=== PATIENT | female | born 1995 | race Caucasian/White ===

== ENCOUNTER 2024-07-30 14:13 | Outpatient (CLI) | payer BC, SELFPAY ==
--- NOTE | ~2024-07-30 | US_ITS ---
EXAMINATION: US OB <= 14 weeks fetus DATE: 07/30/2024 14:29 INDICATION: with inconclusive viability. TECHNIQUE: Real-time transabdominal pelvic ultrasound was performed. COMPARISON: None. FINDINGS: The uterus measures 12.1 x 7.6 x 6.2 cm. There is an intrauterine gestational sac. A yolk sac is iden tified. The crown rump length measures 2.4 cm, which correlates with an estimated gestational age of 9 weeks and 0 day(s) (+/-) 0 week(s) and 6 day(s). heart motion is identified measuring 174 beats per minute (bpm) by M-mode Doppler. There is a small subchronic hematoma. The ovaries are n ot visualized. There is no free fluid in the pelvis. IMPRESSION: 1. Single living intrauterine gestation with estimated date of delivery of 03/04/2025. 2. Small subchorionic hematoma. Reviewed, dictated and finalized at location A. IMPRESSION: 1. Single living intrauterine gestation with estimated date of delivery of 03/04. 2. Small subchorionic hematoma.
== END 2024-07-30 14:14 | disposition home or self-care (01) ==
LOC: GOSHIMG 14:14
PROVIDERS: PCP Family Medicine Adolescent Medicine; Visit Provider Nurse Practitioner Family
DX: O36.80X0 Pregnancy with inconclusive fetal viability, not applicable or unspecified (principal); Z3A.00 Weeks of gestation of pregnancy not specified
CPT/HCPCS: 76801

== ENCOUNTER 2024-08-29 11:52 | Outpatient (CLI) | payer BC, SELFPAY ==
[2024-08-29 12:34] LABS: Basophils Percent Auto 0.3 % (0.2-1.2); Eosinophils Absolute Auto 0.1 K/mm3 (0-0.3); Eosinophils Percent Auto 0.7 % (0-4.4); Hematocrit 40.5 % (37.0-47.0); Hemoglobin 13.9 g/dL (12.0-15.0); Immature Granulocyte Absolute 0.03 K/mm3 (0.00-0.031); Immature Granulocyte Percent A 0.4 % (0-0.5); Lymphocytes Absolute Auto 1.77 K/mm3 (0.9-3.2); Mean Corpuscular HGB Conc 34.3 g/dl (32-36); Mean Corpuscular Hemoglobin 30.2 pg (26-34); Mean Platelet Volume 9.7 fl (7.4-10.4); Monocytes Absolute Auto 0.6 K/mm3 (0.1-0.6); Neutrophils Absolute Auto 4.9 K/mm3 (1.3-6.7); Neutrophils Percent Auto 66.6 % (45.5-73.1); Platelet Count Result 213 k/mm3 (150-375); Red Cell Distribution Width 12.1 % (11.5-14.5); White Blood Count 7.4 K/mm3 (4.5-10.0)
[2024-08-29 12:42] LABS: Hemoglobin A1C 5.1 % (<5.7)
[2024-08-29 13:04] LABS: Add Urine Microscopic? YES; Appearance Urine Cloudy (Clear); Bacteria Urine 4+ /hpf; Bilirubin Urine Negative (Negative); Blood Urine Negative (Negative); Color Urine Yellow (Yellow); Glucose Urine UA 1+ mg/dL (Negative); Ketones Urine Negative (Negative); Leukocyte Esterase Ur 3+ LEU/UL (Negative); Need Manual Microscopic Reviewed; Nitrate Urine Negative (Negative); Non Pathogenic Casts 0-2; Protein Urine Negative (Negative); RBC Urine 0-2 /hpf (0-2); Specific Grav Ur 1.025 (1.001-1.035); Squamous Epithelial Cell Urine Moderate /hpf (Few); Urobilinogen Urine 0.2 mg/dL (<2.0); WBC Urine 51-100 /hpf (0-3)
[2024-08-29 13:16] LABS: Thyroid Stimulating Hormone 0.183 uIU/mL (0.465-4.680)
[2024-08-29 13:26] LABS: HIV 1/2 Ab P24 Ag Result Negative (Negative)
[2024-08-29 13:36] LABS: Vitamin D 25 Hydroxy 37.3 ng/mL
[2024-08-29 13:53] LABS: Hepatitis B Surface Antigen Negative (Negative)
[2024-08-29 14:07] LABS: Hepatitis C Virus Antibody Negative (Negative)
[2024-08-30 11:29] LABS: Rapid Plasma Reagin Non-Reactive (NonReactive)
[2024-08-31 06:58] LABS: Hematocrit 43.2 % (35.0-45.0); Hemoglobin 13.7 g/dL (11.7-15.5); MCH 28.8 pg (27.0-33.0); MCV 90.9 fL (80.0-100.0); RDW 12.3 % (11.0-15.0); Red Blood Cell Count 4.75 Million/uL (3.80-5.10)
[2024-09-01 14:44] LABS: Varicella IgG Antibody <1.00 S/CO
== END 2024-08-29 11:53 | disposition home or self-care (01) ==
LOC: ANHLAB 11:55
PROVIDERS: PCP Family Medicine Adolescent Medicine; Visit Provider Obstetrics & Gynecology
DX: Z34.91 Encounter for supervision of normal pregnancy, unspecified, first trimester (principal); Z3A.00 Weeks of gestation of pregnancy not specified
CPT/HCPCS: 36415; 81001; 82306; 83021; 83036; 84443; 85025; 86592; 86703; 86762; 86787; 86803; 86850; 86900; 86901; 87086; 87340; G0432

== ENCOUNTER 2024-09-08 10:34 | Outpatient (CLI) | payer BC, SELFPAY ==
[2024-09-08 11:49] LABS: Free T4 Free Thyroxine 1.04 ng/mL (0.78-2.19)
== END 2024-09-08 10:35 | disposition home or self-care (01) ==
LOC: ANHLAB 10:35
PROVIDERS: PCP Family Medicine Adolescent Medicine; Visit Provider Obstetrics & Gynecology
DX: R79.89 Other specified abnormal findings of blood chemistry (principal)
CPT/HCPCS: 36415; 84439

== ENCOUNTER 2024-11-17 09:07 | Outpatient (CLI) | payer BC, SELFPAY ==
[2024-11-17 10:28] LABS: Basophils Percent Auto 0.3 % (0.2-1.2); Eosinophils Absolute Auto 0.1 K/mm3 (0-0.3); Eosinophils Percent Auto 0.8 % (0-4.4); Hematocrit 40.2 % (37.0-47.0); Hemoglobin 13.2 g/dL (12.0-15.0); Immature Granulocyte Absolute 0.07 K/mm3 (0.00-0.031); Immature Granulocyte Percent A 0.7 % (0-0.5); Lymphocytes Absolute Auto 1.64 K/mm3 (0.9-3.2); Lymphocytes Percent Auto 16.3 % (18.3-44.2); Mean Corpuscular HGB Conc 32.8 g/dl (32-36); Mean Corpuscular Hemoglobin 29.9 pg (26-34); Mean Platelet Volume 10.3 fl (7.4-10.4); Monocytes Absolute Auto 0.8 K/mm3 (0.1-0.6); Monocytes Percent Auto 7.5 % (2.6-8.5); Neutrophils Absolute Auto 7.5 K/mm3 (1.3-6.7); Neutrophils Percent Auto 74.4 % (45.5-73.1); Platelet Count Result 219 k/mm3 (150-375); Red Blood Count 4.42 M/mm3 (4.2-5.4); Red Cell Distribution Width 13.2 % (11.5-14.5)
[2024-11-17 10:44] LABS: Glucose 1 Hour PP 50gm Dose 81 mg/dL
--- OUTSIDE RECORDS SUMMARY | 2024-11-20 12:12 | XMS_ITS | Clinical Summary ---
Author Organization [facility] Address [address] [place] [address] Phone Care Team Providers Care Health Spa Manager Name Role Phone Unavailable Primary Care Provider Unavailabl e Encounters Date Type Department Care Team Description 11/19/2024 External Device Data STL ABSTRACTION Provider, Abstract 10/28/2024 External Device Data STL ABSTRACTION Provider, Abstract 10/23/2024 7:30 AM JACKSCREW WORKER - 10/23/2024 11:59 PM JACKSCREW WORKER Hospital Encounter [facility] [address] [place] [address] Serge Bobo MD Discharge Disposition: Home or Self Care from Last 3 Months Social History Tobacco Use Types Packs/Day Years Used Date Smoking Tobacco: Never Assessed Comments Unknown Sex and Gender Information Value Date Recorded Sex Assigned at Female 10/28/2024 8:55 PM JACKSCREW WORKER Legal Sex Female 12:21 PM JACKSCREW WORKER Gender Identity Female 10/28/2024 8:55 PM JACKSCREW WORKER Sexual Orientation Not on file Plan of Treatment Upcoming Encounters Date Type Department Care Team (Late st Contact Info) Description 12/16/2024 7:15 AM JACKSCREW WORKER Appointment [facility] [address] [place] [address] Melanie Sykes MD [address] [facility] [address] [place] [address] Health Maintenance Due Date Last Done Comments DTAP/TDAP/TD VACCINES (1 - Tdap) 2014 HEPATITIS B VACCINES (1 of 3 - 19+ 3-dose series) 2014 CERVICAL CANCER SCREENING 2016 INFLUENZA VACCINE (#1) 2024 HPV VACCINES Aged Out No longer eligi nadya based on patient's age to complete this topic Procedures Procedure Name Priority Date/Time Associated Diagnosis Comments US OB 14+ WKS SINGLE GEST Routine 10/23/2024 8:41 AM JACKSCREW WORKER Encounter for screening for malformation from Last 3 Months Results * US OB 14+ WKS SINGLE GEST (10/23/2024 8:41 AM JACKSCREW WORKER) Anatomical Region Laterality Modality Pelvis Ultrasound 10/23/2024 7:54 AM JACKSCREW WORKER Narrative 10/23/2024 8:48 AM JACKSCREW WORKER STL BASIC ----- Pat. Name: ОЛЕГ MCMAHAN Study Date: 10/23/2024 7:54am Pat. NO: [id number] Referring ??MD: SERGE BOBO MD Site: [facility] Supervisor: Marina Loaiza RDMS : 1995 Age: 29 ----- INDICATION ----- Anatomy Survey CODING ----- Diagnoses ? Z3A.21: Weeks of gestation ?Z36.3: Encounter for screening for malformations Procedures ?64143: Ultrasound, uterus, real time with image documentation, and maternal evaluation, ?after first trimester (> or = 14 weeks 0 days), transabdominal approach; single or first gestation HISTORY ----- OB History ? 1. Para 0 MATERNAL ASSESSMENT ----- Physical Exam ? Weight 82 kg. BMI 28.19 kg/m?? METHOD ----- Transabdominal ultrasound examination ----- Barker . Number of fetuses: 1 DATING ----- Cycle: regular cycle Method of dating: based on stated RICK GA by prior assessment 21 w + 1 d RICK by prior assessment: 03/04/2025 Ultrasound examination on: 10/23/2024 GA by U/S based upon: AC, BPD, EFW, Femur, HC GA by U/S 20 w + 6 d RICK by U/S: 03/06/2025 Assigned: based on stated RICK, selected on 10/23/2024 Assigned GA 21 w + 1 d Assigned RICK: 03/04/2025 BIOMETRY ----- BPD ?49.4 ? mm ? 21w 0d ? 41% ?Hadlock OFD ?64.1 ? mm ? 21w 5d ? 72% ?Stefan ? 181.5 ?mm ? 20w 4d ? 17% ?Hadlock Cerebellum tr ?21.1 ? mm ? 20w 5d ? 32% ?Villa Nuchal fold ?3.6 ?mm AC ? 164.6 ?mm ? 21w 4d ? 55% ?Hadlock Femur ?32.4 ? mm ? 20w 1d ? 12% ?Hadlock Humerus ?30.6 ? mm ? 20w 1d ? 13% ?Stefan HC / AC ?1.10 ?15% ? Nicolaides Weight Calculation: EFW ?381 ? g ?20w 5d ?30% ?Hadlock EFW (lb,oz) ?0 lb 13 ? oz EFW by ?Hadlock ([id number]) Head / Face / Neck Biometry: Aircraft Magneto Mechanic ? 6.5 ?mm CM ? 3.1 ?mm ? 2% ?Nicolaides Outer IOD ? 31.1 ? mm ? 20w 0d ?9% ? Stefan Extremities / Bony Struc Biometry: FL / BPD ?0.66 FL / HC ? 0.18 FL / AC ? 0.20 GENERAL EVALUATION ----- Cardiac activity present. FHR 145 bpm. movements: visualized. Presentation: breech Placenta: Placental site: anterior Umbilical cord: Cord vessels: 2 vessel cord. Insertion site: placental insertion: normal Amniotic fluid: Amount of AF: normal amount. MVP 3.9 cm ANATOMY ----- The following structures appear normal: Head / Neck ? Cranium. Lateral ventricles. Choroid plexus. Midline falx. Cavum septi pellucidi. Cerebellum. Cisterna ?magna. ?Nuchal fold. Face ?Lips. Profile. Nose. Palate. Orbits. Heart / Thorax ?4-chamber view. RVOT view. LVOT view. 3-vessel view. 6-liplil-fqrctzf view. Situs. Aortic arch view. ?Ductal arch view. Superior vena cava. Inferior vena cava. High short axis view. Cardiac rhythm. ?Diaphragm. Abdomen ? Abdominal wall. Stomach. Kidneys. Bladder. Spine ? Cervical spine. Thoracic spine. Lumbar spine. Sacral spine. Extremities / ? Arms. Right hand. Left hand. Legs. Right foot. Left foot. Skeleton MATERNAL STRUCTURES ----- Cervix ?Visualized ?Approach - Transabdominal: Cervical length 45.1 mm Right Ovary ? Not visualized Left Ovary ?Not visualized GROWTH OVERVIEW ----- Exam date ? GA ?BPD (mm) ? HC (mm) ?AC (mm) ? FL (mm) ?HL (mm) ?EFW (g) 10/23/2024 ?21w 1d ?49.4 ?41% ?181.5 ? 17% ?164.6 ?55% ?32.4 ?12% ?30.6 ?13% ?381 ? 30% COMMENT ----- Patient's name and date of were confirmed by the diaper machine tender prior to the exam IMPRESSION ----- Barker @ 21w 1d referred for anatomical survey. - The biometry is consistent with dates. - Amniotic fluid indices are within normal limits. - The placenta is anterior with a central cord insertion and with no evidence of previa or low-lying placenta. A 2 vessel cord is noted today. - Visualized anatomy is unremarkable and no abnormality is suspected at this time. Single umbilical artery (SUA) umbilical cord is isolated in 85 % of pregnancies. If a concomitant anomaly is present it can be associated with aneuploidy. Common anomalies associated with SUA include and cardiac defects, sirenomelia, and TRAP sequence. It is most commonly an incidental finding on routine views of the umbilical cord. It occurs in 1% of births. Isolated SUA has an increased risk of FGR, but no increased mortality risk. Due to the association with FGR, serial growth ultrasounds are recommended. A followup ultrasound is recommended at 28 to follow growth due to the 2 vessel cord. Thank you for allowing us to participate in the care of your patient. Procedure Note Melanie Sykes MD - 10/23/2024 STL BASIC ----- Pat. Name:Phil MCMAHAN Date:10/23/2024 7:54am Pat. NO: [id number] MD:SERGE BOBO [facility] Loaiza RDMS :1995Age:29 ----- INDICATION ----- Anatomy Survey CODING ----- Diagnoses Z3A.21: Weeks of gestation Z36.3: Encounter for screening formalformations Procedures [id number]: Ultrasound, uterus, real time withimage documentation, and maternal evaluation, after first trimester (> or = 14 weeks 0 days),transabdominal approach; single or first gestation HISTORY ----- OB History 1. Para 0 MATERNAL ASSESSMENT ----- Physical Exam Weight 82 kg. BMI 28.19 kg/m?? METHOD ----- Transabdominal ultrasound examination ----- Barker . Number of fetuses: 1 DATING ----- Cycle:regular cycle Method of dating:based on stated RICK GA by prior [id number] w + 1 d RICK by prior assessment:03/04/2025 Ultrasound examination on:10/23/2024 GA by U/S based upon:AC, BPD, EFW, Femur, HC GA by U/S20 w + 6 d RICK by U/S:03/06/2025 Assigned:based on stated RICK, selected on 10/23/2024 Assigned GA21 w + 1 d Assigned RICK:03/04/2025 BIOMETRY ----- BPD 49.4 mm 21w 0d41% Hadlock OFD 64.1 mm 21w 5d72% Stefan HC 181.5 mm 20w 4d17% Hadlock Cerebellum tr 21.1 mm 20w 5d32% Villa Nuchal fold 3.6 mm AC 164.6 mm 21w 4d55% Hadlock Femur 32.4 mm 20w 1d12% Hadlock Humerus 30.6 mm 20w 1d13% Stefan HC / AC 1.10 15%Nicolaides Weight Calculation: EFW 381 g 20w 5d 30%Hadlock EFW (lb,oz) 0 lb 13 oz EFW by Hadlock ([id number]) Head / Face / Neck Biometry: Aircraft Magneto Mechanic 6.5 mm CM 3.1 mm 2%Nicolaides Outer IOD 31.1 mm 20w 0d 9%Stefan Extremities / Bony Struc Biometry: FL / BPD 0.66 FL / HC 0.18 FL / AC 0.20 GENERAL EVALUATION ----- Cardiac activity present. FHR 145 bpm. movements: visualized.Presentation: breech Placenta: Placental site: anterior Umbilical cord: Cord vessels: 2 vessel cord. Insertion site: placentalinsertion: normal Amniotic fluid: Amount of AF: normal amount. MVP 3.9 cm ANATOMY ----- The following structures appear normal: Head / Neck Cranium. Lateral ventricles. Choroid plexus.Midline falx. Cavum septi pellucidi. Cerebellum. Cisterna magna. Nuchal fold. Face Lips. Profile. Nose. Palate. Orbits. Heart / Thorax 4-chamber view. RVOT view. LVOT view. 3-vesselview. 5-bwemxl-npvlfwp view. Situs. Aortic arch view. Ductal arch view. Superior vena cava. Inferiorvena cava. High short axis view. Cardiac rhythm. Diaphragm. Abdomen Abdominal wall. Stomach. Kidneys. Bladder. Spine Cervical spine. Thoracic spine. Lumbar spine.Sacral spine. Extremities / Arms. Right hand. Left hand. Legs. Right foot.Left foot. Skeleton MATERNAL STRUCTURES ----- Cervix Visualized Approach - Transabdominal: Cervical length 45.1mm Right Ovary Not visualized Left Ovary Not visualized GROWTH OVERVIEW ----- Exam date GA BPD (mm) HC (mm) AC (mm) FL(mm) HL (mm) EFW (g) 10/23/2024 21w 1d 49.4 41% 181.5 17% 164.6 55%32.4 12% 30.6 13% 381 30% COMMENT ----- Patient's name and date of were confirmed by the diaper machine tender priorto the exam IMPRESSION ----- Barker @ 21w 1d referred for anatomical survey. - The biometry is consistent with dates. - Amniotic fluid indices are within normal limits. - The placenta is anterior with a central cord insertion and with noevidence of previa or low-lying placenta. A 2 vessel cord is noted today. - Visualized anatomy is unremarkable and no abnormality is suspectedat this time. Single umbilical artery (SUA) umbilical cord is isolated in 85 % ofpregnancies. If a concomitant anomaly is present it can be associated with aneuploidy. Common anomalies associated with SUA includeGU and cardiac defects, sirenomelia, and TRAP sequence. It is most commonly an incidental finding on routine views of theumbilical cord. It occurs in 1% of births. Isolated SUA has an increased risk of FGR, but no increased mortality risk. Due to theassociation with FGR, serial growth ultrasounds are recommended. A followup ultrasound is recommended at 28 to follow growth due tothe 2 vessel cord. Thank you for allowing us to participate in the care of your patient. us Serge Bobo MD ORDERABLES Final Result from Last 3 Months Insurance [facility]
== END 2024-11-17 09:08 | disposition home or self-care (01) ==
LOC: ANHLAB 09:09
PROVIDERS: PCP Family Medicine Adolescent Medicine; Visit Provider Nurse Practitioner Obstetrics & Gynecology
DX: Z34.00 Encounter for supervision of normal first pregnancy, unspecified trimester (principal); Z3A.00 Weeks of gestation of pregnancy not specified
CPT/HCPCS: 36415; 82947; 85025

== ENCOUNTER 2024-12-15 08:36 | Outpatient (RCR) | payer BC, SELFPAY ==
[2024-12-15] MEDS: RHO(D) IMMUNE GLOBULIN 300 MCG/2 ML SYRINGE IM (15:33)
== END 2025-03-15 23:59 | disposition home or self-care (01) ==
LOC: ANHLAB 08:36
PROVIDERS: PCP Family Medicine Adolescent Medicine; Visit Provider Obstetrics & Gynecology
DX: Z29.13 Encounter for prophylactic Rho(D) immune globulin (principal); O36.0190 Maternal care for anti-D [Rh] antibodies, unspecified trimester, not applicable or unspecified; Z3A.00 Weeks of gestation of pregnancy not specified
CPT/HCPCS: 36415; 85461; 86850; 86900; 86901; 90384; 96372; J2790

== ENCOUNTER 2025-01-09 16:22 | Outpatient (CLI) | payer BC, SELFPAY ==
--- OUTSIDE RECORDS SUMMARY | 2025-01-09 16:25 | XMS_ITS | Clinical Summary ---
Author Organization [facility] Address [address] [place] [address] Phone Care Team Providers Care Director Packaging Name Role Phone Unavailable Primary Care Provider Unavailabl e Encounters Date Type Department Care Team Description 01/03/2025 External Device Data STL ABSTRACTION Provider, Abstract 01/02/2025 External Device Data STL ABSTRACTION Provider, Abstract 12/31/2024 External Device Data STL ABSTRACTION Provider, Abstract 12/25/2024 7:07 AM WASH DRILLER - 12/25/2024 11:59 PM WASH DRILLER Hospital Encounter [facility] [address] [place] [phone] Fiona Martinez MD Discharge Disposition: Home or Self Care 12/16/2024 7:15 AM WASH DRILLER - 12/16/2024 11:59 PM WASH DRILLER Hospital Encounter [facility] [address] [place] [phone] Melanie Sykes MD Discharge Disposition: Home or Self Care 12/16/2024 External Device Data STL ABSTRACTION Provider, Abstract 11/25/2024 External Device Data STL ABSTRACTION Provider, Abstract 11/19/2024 External Device Data STL ABSTRACTION Provider, Abstract 11/19/2024 External Device Data STL ABSTRACTION Provider, Abstract 10/28/2024 External Device Data STL ABSTRACTION Provider, Abstract 10/23/2024 7:30 AM WASH DRILLER - 10/23/2024 11:59 PM WASH DRILLER Hospital Encounter [facility] [address] [place] [phone] Serge Bobo MD Discharge Disposition: Home or Self Care from Last 3 Months Social History Tobacco Use Types Packs/Day Years Used Date Smoking Tobacco: Never Assessed Comments Unknown Sex and Gender Information Value Date Recorded Sex Assigned at Female 10/28/2024 8:55 PM WASH DRILLER Legal Sex Female 12:21 PM WASH DRILLER Gender Identity Female 10/28/2024 8:55 PM WASH DRILLER Sexual Orientation Not on file Plan of Treatment Upcoming Encounters Date Type Department Care Team (Late st Contact Info) Description 01/15/2025 9:30 AM CDT Appointment [facility] [address] [place] [address] Melanie Sykes MD [address] [facility] [address] [place] [phone] Health Maintenance Due Date Last Done Comments DTAP/TDAP/TD VACCINES (1 - Tdap) 2014 HEPATITIS B VACCINES (1 of 3 - 19+ 3-dose series) 2014 CERVICAL CANCER SCREENING 2016 INFLUENZA VACCINE (#1) 2024 HPV VACCINES Aged Out No longer eligi ble based on patient's age to complete this topic Procedures Procedure Name Priority Date/Time Associated Diagnosis Comments US OB FOLLOW UP PER FETUS Routine 12/25/2024 7:44 AM WASH DRILLER arrhythmia affecting , antepartum US OB FOLLOW UP PER FETUS Routine 12/16/2024 7:43 AM WASH DRILLER Single umbilical artery US OB 14+ WKS SINGLE GEST Routine 10/23/2024 8:41 AM WASH DRILLER Encounter for screening for malformation from Last 3 Months Results * US OB FOLLOW UP PER FETUS (12/25/2024 7:44 AM WASH DRILLER) Only the most recent of2 resultswithin the time period is included. Anatomical Region Laterality Modality Pelvis Ultrasound 12/25/2024 7:08 AM WASH DRILLER Narrative 12/25/2024 7:49 AM WASH DRILLER STL FOLLOW UP ----- Pat. Name: ОЛЕГ MCMAHAN Study Date: 12/25/2024 7:08am Pat. 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 Para 0 METHOD ----- Transabdominal ultrasound examination ----- Barker . Number of fetuses: 1 DATING ----- Cycle: regular cycle GA by prior assessment 30 w + 1 d RICK by prior assessment: 03/04/2025 Method of dating: Restore dating from previous exam Assigned: based on stated RICK, selected on 10/23/2024 Assigned GA 30 w + 1 d Assigned RICK: 03/04/2025 GENERAL EVALUATION ----- Cardiac activity present. FHR 131 bpm. movements: present. Presentation: cephalic Placenta: Placental site: anterior Umbilical cord: Cord vessels: 2 vessel cord. Insertion site: placental insertion: normal Amniotic fluid: Amount of AF: normal amount. MVP 3.6 cm. FLAVIA 11.7 cm. Q1 2.6 cm, Q2 3.6 cm, Q3 3.2 cm, Q4 2.2 cm ANATOMY ----- The following structures appear normal: Head / Neck Cranium. Heart / Thorax 4-chamber view. RVOT view. LVOT view. Abdomen Stomach. Bladder. GROWTH OVERVIEW ----- Exam date GA BPD (mm) HC (mm) AC (mm) FL (mm) HL (mm) EFW (g) 10/23/2024 21w 1d 49.4 41% 181.5 17% 164.6 55% 32.4 12% 30.6 13% 381 30% 12/16/2024 28w 6d 75.8 84% 274.2 50% 258.6 77% 52.7 15% 1,387 57% COMMENT ----- Patient's name and date of were verified by the blending coordinator prior to the exam IMPRESSION ----- 1. Single living fetus with gestational age of 30w 1d , based on the reported clinical dates. 2. Target, limited anatomic survey is notable for normal sinus rhythm. 3. The amniotic fluid is normal for gestational age. Recommendations: - OK to resume routine surveillance. - Discontinue weekly exams. Thank you for allowing us to participate in the care of this patient. Procedure Note Korin Saavedra MD - 12/25/2024 STL FOLLOW UP ----- Pat. Name:Phil MCMAHAN Date:12/25/2024 7:08am Pat. 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 Para 0 METHOD ----- Transabdominal ultrasound examination ----- Barker . Number of fetuses: 1 DATING ----- Cycle:regular cycle GA by prior [id number] w + 1 d RICK by prior assessment:03/04/2025 Method of dating:Restore dating from previous exam Assigned:based on stated RICK, selected on 10/23/2024 Assigned GA30 w + 1 d Assigned RICK:03/04/2025 GENERAL EVALUATION ----- Cardiac activity present. FHR 131 bpm. movements: present.Presentation: cephalic Placenta: Placental site: anterior Umbilical cord: Cord vessels: 2 vessel cord. Insertion site: placentalinsertion: normal Amniotic fluid: Amount of AF: normal amount. MVP 3.6 cm. FLAVIA 11.7 cm. Q12.6 cm, Q2 3.6 cm, Q3 3.2 cm, Q4 2.2 cm ANATOMY ----- The following structures appear normal: Head / Neck Cranium. Heart / Thorax 4-chamber view. RVOT view. LVOT view. Abdomen Stomach. Bladder. GROWTH OVERVIEW ----- Exam date GA BPD (mm) HC (mm) AC (mm) FL(mm) HL (mm) EFW (g) 10/23/2024 21w 1d 49.4 41% 181.5 17% 164.6 55%32.4 12% 30.6 13% 381 30% 12/16/2024 28w 6d 75.8 84% 274.2 50% 258.6 77%52.7 15% 1,387 57% COMMENT ----- Patient's name and date of were verified by the blending coordinator prior tothe exam IMPRESSION ----- 1. Single living fetus with gestational age of 30w 1d , based on thereported clinical dates. 2. Target, limited anatomic survey is notable for normal sinusrhythm. 3. The amniotic fluid is normal for gestational age. Recommendations: - OK to resume routine surveillance. - Discontinue weekly exams. Thank you for allowing us to participate in the care of this patient. us Fiona Martinez MD US ORDERABLES Final Result * US OB 14+ WKS SINGLE GEST (10/23/2024 8:41 AM WASH DRILLER) Anatomical Region Laterality Modality Pelvis Ultrasound 10/23/2024 7:54 AM WASH DRILLER Narrative 10/23/2024 8:48 AM WASH DRILLER STL BASIC ----- Pat. Name: ОЛЕГ MCMAHAN Study Date: 10/23/2024 7:54am Pat. NO: [id number] Referring MD: SERGE BOBO MD Site: [place] [employer] Specialist: Marina Loaiza RDMS : 1995 Age: 29 ----- INDICATION ----- Anatomy Survey CODING ----- Diagnoses Z3A.21: Weeks of gestation Z36.3: Encounter for screening for malformations Procedures [id number]: Ultrasound, uterus, real time with image documentation, and maternal evaluation, after first trimester (> or = 14 weeks 0 days), transabdominal approach; single or first gestation HISTORY ----- OB History 1. Para 0 MATERNAL ASSESSMENT ----- Physical Exam Weight 82 kg. BMI 28.19 kg/m METHOD ----- Transabdominal ultrasound examination ----- Barker [...] d Assigned RICK: 03/04/2025 BIOMETRY ----- BPD 49.4 mm 21w 0d 41% Hadlock OFD 64.1 mm 21w 5d 72% Stefan HC 181.5 mm 20w 4d 17% Hadlock Cerebellum tr 21.1 mm 20w 5d 32% Villa Nuchal fold 3.6 mm AC 164.6 mm 21w 4d 55% Hadlock Femur 32.4 mm 20w 1d 12% Hadlock Humerus 30.6 mm 20w 1d 13% Stefan HC / AC 1.10 15% Nicolaides Weight Calculation: EFW 381 g 20w 5d 30% Hadlock EFW (lb,oz) 0 lb 13 oz EFW by Hadlock ([id number]) Head / Face / Neck Biometry: Dialysis Tech 6.5 mm CM 3.1 mm 2% Nicolaides Outer IOD 31.1 mm 20w 0d 9% Stefan Extremities / Bony Struc Biometry: FL [...] Head / Neck Cranium. Lateral ventricles. Choroid plexus. Midline falx. Cavum septi pellucidi. Cerebellum. Cisterna magna. Nuchal fold. Face Lips. Profile. Nose. Palate. Orbits. Heart / Thorax 4-chamber view. RVOT view. LVOT view. 3-vessel view. 3-wsfknu-twlcuhm view. Situs. Aortic arch view. Ductal arch view. Superior vena cava. Inferior vena cava. High short axis view. Cardiac rhythm. Diaphragm. Abdomen Abdominal wall. Stomach. Kidneys. Bladder. Spine Cervical spine. Thoracic spine. Lumbar spine. Sacral spine. Extremities / Arms. Right hand. Left hand. Legs. Right foot. Left foot. Skeleton MATERNAL STRUCTURES ----- Cervix Visualized Approach - Transabdominal: Cervical length 45.1 mm Right Ovary Not visualized Left Ovary Not visualized GROWTH OVERVIEW ----- Exam date GA BPD (mm) HC (mm) AC (mm) FL (mm) HL (mm) EFW (g) 10/23/2024 21w 1d 49.4 41% 181.5 17% 164.6 55% 32.4 12% 30.6 13% 381 30% COMMENT ----- Patient's name and date of were confirmed by the blending coordinator prior to the exam IMPRESSION ----- Barker [...] Pat. Name:Phil MCMAHAN Date:10/23/2024 7:54am Pat. NO: [id number] MD:SERGE BOBO [facility]Marina Loaiza RDMS :1995Age:29 ----- INDICATION ----- Anatomy Survey CODING ----- Diagnoses Z3A.21: Weeks of gestation Z36.3: Encounter for screening formalformations Procedures 51537: Ultrasound, uterus, real time withimage documentation, and maternal evaluation, after first trimester (> or = 14 weeks 0 days),transabdominal approach; single or first gestation HISTORY ----- OB History 1. Para 0 MATERNAL ASSESSMENT ----- Physical Exam Weight 82 kg. BMI 28.19 kg/m METHOD ----- Transabdominal ultrasound examination ----- Barker . Number of fetuses: 1 DATING ----- Cycle:regular cycle Method of dating:based on stated RICK GA by prior [id number] w + 1 d RICK by prior [...] 0 lb 13 oz EFW by Hadlock ([id number]) Head / Face / Neck Biometry: Dialysis Tech 6.5 mm CM 3.1 mm 2%Nicolaides Outer [...] 4-chamber view. RVOT view. LVOT view. 3-vesselview. 8-xtenhj-pogqqxa view. Situs. Aortic arch view. Ductal arch [...] and date of were confirmed by the blending coordinator priorto the exam IMPRESSION ----- Barker @ [...] Final Result from Last 3 Months [facility]
[2025-01-09 16:50] LABS: Hematocrit 37.1 % (37.0-47.0); Hemoglobin 12.2 g/dL (12.0-15.0); Mean Corpuscular HGB Conc 32.9 g/dl (32-36); Mean Corpuscular Hemoglobin 29.6 pg (26-34); Mean Platelet Volume 10.5 fl (7.4-10.4); Platelet Count Result 195 k/mm3 (150-375); Red Blood Count 4.12 M/mm3 (4.2-5.4); Red Cell Distribution Width 13.2 % (11.5-14.5); White Blood Count 8.1 K/mm3 (4.5-10.0)
[2025-01-09 17:42] LABS: HIV 1/2 Ab P24 Ag Result Negative (Negative)
[2025-01-09 17:47] LABS: Syphilis IgG/IgM Antibody Negative (Negative)
== END 2025-01-09 16:23 | disposition home or self-care (01) ==
LOC: ANHLAB 16:23
PROVIDERS: PCP Family Medicine Adolescent Medicine; Visit Provider Obstetrics & Gynecology
DX: Z34.00 Encounter for supervision of normal first pregnancy, unspecified trimester (principal)
CPT/HCPCS: 36415; 85027; 86593; 86703; G0432

== ENCOUNTER 2025-02-25 13:56 | Inpatient (IN) | payer BC, SELFPAY ==
[2025-02-25] VITALS (59 sets, daily range): BP systolic 123–148; BP diastolic 83–111; PULSE 74–116; TEMP 36.8; O2SAT 96–100; BMI 32.8
--- OUTSIDE RECORDS SUMMARY | 2025-02-25 14:56 | XMS_ITS | Clinical Summary ---
Author Organization [facility] Address [address] [place] [address] Phone Care Team Providers Care Child Care Counselor Name Role Phone Unavailable Primary Care Provider Unavailabl e Encounters Date Type Department Care Team Description 02/19/2025 7:30 AM CDT - 02/19/2025 11:59 PM CDT Hospital Encounter [facility] Enoch Abrams [address] [place] [phone] Shayne Jiménez MD Discharge Disposition: Home or Self Care 02/12/2025 9:20 AM CDT - 02/12/2025 11:59 PM CDT Hospital Encounter [facility] Enoch Abrams [address] [place] [phone] Shayne Jiménez MD Discharge Disposition: Home or Self Care 02/12/2025 8:26 AM CDT - 02/12/2025 11:59 PM CDT Hospital Encounter [facility] Enoch Abrams [address] [place] [phone] Shayne Jiménez MD Discharge Disposition: Home or Self Care 02/05/2025 9:30 AM CDT - 02/05/2025 11:59 PM CDT Hospital Encounter [facility] Enoch Abrams [address] [place] [phone] Shayne Jiménez MD Discharge Disposition: Home or Self Care 01/29/2025 8:59 AM CDT - 01/29/2025 11:59 PM CDT Hospital Encounter [facility] Enoch Abrams [address] [place] [phone] Shayne Jiménez MD Discharge Disposition: Home or Self Care 01/27/2025 External Device Data STL ABSTRACTION Provider, Abstract 01/15/2025 9:18 AM CDT - 01/15/2025 11:59 PM CDT Hospital Encounter [facility] Enoch Abrams [address] [place] [phone] Melanie Sykes MD Discharge Disposition: Home or Self Care 01/03/2025 External Device Data STL ABSTRACTION Provider, Abstract 01/02/2025 External Device Data STL ABSTRACTION Provider, Abstract 12/31/2024 External Device Data STL ABSTRACTION Provider, Abstract 12/25/2024 7:07 AM SHEARING MACHINE OPERATOR - 12/25/2024 11:59 PM SHEARING MACHINE OPERATOR Hospital Encounter [facility] Enoch Abrams [address] [place] [phone] Fiona Martinez MD Discharge Disposition: Home or Self Care 12/16/2024 7:15 AM SHEARING MACHINE OPERATOR - 12/16/2024 11:59 PM SHEARING MACHINE OPERATOR Hospital Encounter [facility] Enoch Abrams [address] [place] [phone] Melanie Sykes MD Discharge Disposition: Home or Self Care 12/16/2024 External Device Data STL ABSTRACTION Provider, Abstract from Last 3 Months Social History Tobacco Use Types Packs/Day Years Used Date Smoking Tobacco: Never Assessed Comments Unknown Sex and Gender Information Value Date Recorded Sex Assigned at Female 10/28/2024 8:55 PM SHEARING MACHINE OPERATOR Legal Sex Female 12:21 PM SHEARING MACHINE OPERATOR Gender Identity Female 10/28/2024 8:55 PM SHEARING MACHINE OPERATOR Sexual Orientation Not on file Plan of Treatment Health Maintenance Due Date Last Done Comments DTAP/TDAP/TD VACCINES (1 - Tdap) 2014 HEPATITIS B VACCINES (1 of 3 - 19+ 3-dose series) 2014 CERVICAL CANCER SCREENING 2016 HPV/Cotest (21-29) 2016 PAP SMEAR 2016 INFLUENZA VACCINE (#1) 2024 HPV VACCINES Aged Out No longer eligi ble based on patient's age to complete this topic Procedures Procedure Name Priority Date/Time Associated Diagnosis Comments US OB LIMITED + NST Routine 02/19/2025 9 :01 AM CDT Single umbilical artery US OB FOLLOW UP PER FETUS Routine 02/12/2025 9:43 AM CDT Single umbilical artery US MONITORING NST Routine 02/12/2025 9:29 AM CDT Single umbilical artery US OB LIMITED + NST Routine 02/05/2025 1 2:52 PM CDT Single umbilical artery US OB LIMITED + NST Routine 01/29/2025 1 0:01 AM CDT Single umbilical artery US OB FOLLOW UP PER FETUS Routine 01/15/2025 9:56 AM CDT Single umbilical artery US OB FOLLOW UP PER FETUS Routine 12/25/2024 7:44 AM SHEARING MACHINE OPERATOR arrhythmia affecting , antepartum US OB FOLLOW UP PER FETUS Routine 12/16/2024 7:43 AM SHEARING MACHINE OPERATOR Single umbilical artery from Last 3 Months Results * US OB LIMITED + NST (02/19/2025 9:01 AM CDT) Only the most recent of3 resultswithin the time period is included. Anatomical Region Laterality Modality Pelvis Ultrasound 02/19/2025 12:2 9 PM CDT Narrative 02/19/2025 8:29 AM CDT [facility] ----- Pat. Name: ОЛЕГ MCMAHAN Study Date: 02/19/2025 12:29pm Pat. 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 Para 0 MATERNAL ASSESSMENT ----- Physical Exam Weight 91 kg. BMI 31.32 kg/m . Blood pressure 126/81 mmHg. Heart rate 112 bpm METHOD ----- EFM, Transabdominal ultrasound examination. View: Good view ----- Montero . Number of fetuses: 1 DATING ----- Cycle: regular cycle GA by prior assessment 38 w + 1 d RICK by prior assessment: 03/04/2025 Method of dating: Restore dating from previous exam Assigned: based on stated RICK, selected on 10/23/2024 Assigned GA 38 w + 1 d Assigned RICK: 03/04/2025 GENERAL EVALUATION ----- Cardiac activity present. Presentation: cephalic NON STRESS TEST ----- NST interpretation: reactive. Test duration 28 min. Baseline FHR 130 bpm. Baseline variability: moderate. Accelerations: Present. Decelerations: absent. Uterine activity: present, 2 contractions in 28 minutes AMNIOTIC FLUID ASSESSMENT ----- Amount of AF: normal amount MVP 4.0 cm. FLAVIA 10.0 cm. Q1 4.0 cm, Q2 0.0 cm, Q3 2.3 cm, Q4 3.7 cm COMMENT ----- Nurses Notes: Patient reports positive movement and no bleeding, leaking of fluid or lior. Patient scheduled once weekly IMPRESSION ----- 1. Montero living fetus with a gestational age of 38w 1d, based on the reported clinical dates. 2. Amniotic fluid volume is normal for gestational age (MVP:4.0cm FLAVIA:10.0cm). 3. NST reactive and reassuring for gestational age. Recommendations: - Continue current surveillance plan. - Daily kick counts are encouraged Thank you for allowing us to participate in the care of this patient. Procedure Note Korin Saavedra MD - 02/19/2025 MODIFIED BPP STUDY ----- Pat. Name:Phil MCMAHAN Date:02/19/2025 12:29pm Pat. 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 Para 0 MATERNAL ASSESSMENT ----- Physical Exam Weight 91 kg. BMI 31.32 kg/m . Blood /81 mmHg. Heart rate 112 bpm METHOD ----- EFM, Transabdominal ultrasound examination. View: Good view ----- Montero . Number of fetuses: 1 DATING ----- Cycle:regular cycle GA by prior [id number] w + 1 d RICK by prior assessment:03/04/2025 Method of dating:Restore dating from previous exam Assigned:based on stated RICK, selected on 10/23/2024 Assigned GA38 w + 1 d Assigned RICK:03/04/2025 GENERAL EVALUATION ----- Cardiac activity present. Presentation: cephalic NON STRESS TEST ----- NST interpretation: reactive. Test duration 28 min. Baseline FHR 130 bpm.Baseline variability: moderate. Accelerations: Present. Decelerations: absent. Uterine activity: present, 2 contractions in 28minutes AMNIOTIC FLUID ASSESSMENT ----- Amount of AF: normal amount MVP 4.0 cm. FLAVIA 10.0 cm. Q1 4.0 cm, Q2 0.0 cm, Q3 2.3 cm, Q4 3.7 cm COMMENT ----- Nurses Notes: Patient reports positive movement and no bleeding,leaking of fluid or lior. Patient scheduled once weekly IMPRESSION ----- 1. Montero living fetus with a gestational age of 38w 1d, based on thereported clinical dates. 2. Amniotic fluid volume is normal for gestational age (MVP:4.0cmAFI:10.0cm). 3. NST reactive and reassuring for gestational age. Recommendations: - Continue current surveillance plan. - Daily kick counts are encouraged Thank you for allowing us to participate in the care of this patient. us Shayne Jiménez MD US ORDERABLES Final Re sult * US OB FOLLOW UP PER FETUS (02/12/2025 9:43 AM CDT) Only the most recent of4 resultswithin the time period is included. Anatomical Region Laterality Modality Pelvis Ultrasound 02/12/2025 9:36 AM CDT Narrative 02/12/2025 9:56 AM CDT [facility] FOLLOW UP ----- Pat. Name: ОЛЕГ MCMAHAN Study Date: 02/12/2025 9:36am Pat. 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 Para 0 MATERNAL ASSESSMENT ----- Physical Exam Weight 91 kg. BMI 31.32 kg/m METHOD ----- Transabdominal ultrasound examination ----- Montero . Number of fetuses: 1 DATING ----- Cycle: regular cycle GA by prior assessment 37 w + 1 d RICK by prior assessment: 03/04/2025 Ultrasound examination on: 02/12/2025 GA by U/S based upon: AC, BPD, EFW, Femur, HC GA by U/S 37 w + 3 d RICK by U/S: 03/02/2025 Method of dating: Restore dating from previous exam Assigned: based on stated RICK, selected on 10/23/2024 Assigned GA 37 w + 1 d Assigned RICK: 03/04/2025 BIOMETRY ----- BPD 92.4 mm 37w 4d 77% Hadlock HC 327.5 mm 37w 1d 26% Hadlock AC 341.6 mm 38w 0d 86% Hadlock Femur 70.7 mm 36w 2d 26% Hadlock HC / AC 0.96 20% Nicolaides Weight Calculation: EFW 3,222 g 38w 0d 66% Hadlock EFW (lb,oz) 7 lb 2 oz EFW by Hadlock ([id number]) Extremities / Bony Struc Biometry: FL / BPD 0.77 FL / HC 0.22 FL / AC 0.21 GENERAL EVALUATION ----- Cardiac activity present. FHR 142 bpm. movements: present. Presentation: cephalic Placenta: Placental site: anterior Umbilical cord: Cord vessels: 2 vessel cord Amniotic fluid: Amount of AF: normal amount. MVP 4.6 cm. FLAVIA 15.6 cm. Q1 4.0 cm, Q2 3.5 cm, Q3 3.5 cm, Q4 4.6 cm ANATOMY ----- The following structures appear normal: Head / Neck Cranium. Heart / Thorax 4-chamber view. RVOT view. LVOT view. Diaphragm. Abdomen Stomach. Kidneys. Bladder. GROWTH OVERVIEW ----- Exam date GA BPD (mm) HC (mm) AC (mm) FL (mm) HL (mm) EFW (g) 10/23/2024 21w 1d 49.4 41% 181.5 17% 164.6 55% 32.4 12% 30.6 13% 381 30% 12/16/2024 28w 6d 75.8 84% 274.2 50% 258.6 77% 52.7 15% 1,387 57% 01/15/2025 33w 1d 86.6 89% 306.8 39% 311.0 93% 63.0 24% 2,392 75% 02/12/2025 37w 1d 92.4 77% 327.5 26% 341.6 86% 70.7 26% 3,222 66% COMMENT ----- Patient's name and date of were verified by the beef trimmer prior to the exam IMPRESSION ----- Viable at 37 weeks gestation complicated by single umbilical artery Cephalic presentation Normal growth Estimated weight at the 66th percentile No structural malformations identified other than single umbilical artery Amniotic fluid volume is normal Anterior placenta. Normal placental cord insertion previously documented. Placenta is not low-lying. Twice-weekly modified biophysical profile scheduled Procedure Note Shayne Jiménez MD - 02/12/2025 [facility] FOLLOW UP ----- Pat. Name:KRISTIE MCMAHANtudy Date:02/12/2025 9:36am Pat. 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 Para 0 MATERNAL ASSESSMENT ----- Physical Exam Weight 91 kg. BMI 31.32 kg/m METHOD ----- Transabdominal ultrasound examination ----- Montero . Number of fetuses: 1 DATING ----- Cycle:regular cycle GA by prior [id number] w + 1 d RICK by prior assessment:03/04/2025 Ultrasound examination on:02/12/2025 GA by U/S based upon:AC, BPD, EFW, Femur, HC GA by U/S37 w + 3 d RICK by U/S:03/02/2025 Method of dating:Restore dating from previous exam Assigned:based on stated RICK, selected on 10/23/2024 Assigned GA37 w + 1 d Assigned RICK:03/04/2025 BIOMETRY ----- BPD 92.4 mm 37w 4d 77%Hadlock HC 327.5 mm 37w 1d 26%Hadlock AC 341.6 mm 38w 0d 86%Hadlock Femur 70.7 mm 36w 2d 26%Hadlock HC / AC 0.96 20%Nicolaides Weight Calculation: EFW 3,222 g 38w 0d66% Hadlock EFW (lb,oz) 7 lb 2 oz EFW by Hadlock ([id number]) Extremities / Bony Struc Biometry: FL / BPD 0.77 FL / HC 0.22 FL / AC 0.21 GENERAL EVALUATION ----- Cardiac activity present. FHR 142 bpm. movements: present.Presentation: cephalic Placenta: Placental site: anterior Umbilical cord: Cord vessels: 2 vessel cord Amniotic fluid: Amount of AF: normal amount. MVP 4.6 cm. FLAVIA 15.6 cm. Q14.0 cm, Q2 3.5 cm, Q3 3.5 cm, Q4 4.6 cm ANATOMY ----- The following structures appear normal: Head / Neck Cranium. Heart / Thorax 4-chamber view. RVOT view. LVOT view. Diaphragm. Abdomen Stomach. Kidneys. Bladder. GROWTH OVERVIEW ----- Exam date GA BPD (mm) HC (mm) AC (mm) FL(mm) HL (mm) EFW (g) 10/23/2024 21w 1d 49.4 41% 181.5 17% 164.6 55%32.4 12% 30.6 13% 381 30% 12/16/2024 28w 6d 75.8 84% 274.2 50% 258.6 77%52.7 15% 1,387 57% 01/15/2025 33w 1d 86.6 89% 306.8 39% 311.0 93%63.0 24% 2,392 75% 02/12/2025 37w 1d 92.4 77% 327.5 26% 341.6 86%70.7 26% 3,222 66% COMMENT ----- Patient's name and date of were verified by the beef trimmer prior tothe exam IMPRESSION ----- Viable at 37 weeks gestation complicated by single umbilicalartery Cephalic presentation Normal growth Estimated weight at the 66th percentile No structural malformations identified other than single umbilicalartery Amniotic fluid volume is normal Anterior placenta. Normal placental cord insertion previously documented.Placenta is not low-lying. Twice-weekly modified biophysical profile scheduled us Shayne Jiménez MD US ORDERABLES Final Re sult * US MONITORING NST (02/12/2025 9:29 AM CDT) Anatomical Region Laterality Modality Ultrasound 02/12/2025 8:51 AM CDT Narrative 02/12/2025 9:[address] [facility] ----- Pat. Name: ОЛЕГ MCMAHAN Study Date: 02/12/2025 8:51am Pat. 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 Para 0 MATERNAL ASSESSMENT ----- Physical Exam Weight 91 kg. BMI 31.32 kg/m . Blood pressure 135/89 mmHg. Heart rate 97 bpm METHOD ----- EFM ----- Montero . Number of fetuses: 1 DATING ----- Cycle: regular cycle GA by prior assessment 37 w + 1 d RICK by prior assessment: 03/04/2025 Method of dating: Restore dating from previous exam Assigned: based on stated RICK, selected on 10/23/2024 Assigned GA 37 w + 1 d Assigned RICK: 03/04/2025 NON STRESS TEST ----- NST interpretation: reactive. Test duration 40 min. Baseline FHR 135 bpm. Baseline variability: moderate. Accelerations: Present. Decelerations: Not present. Uterine activity: absent COMMENT ----- Nursing notes: Patient reports positive movement with no bleeding, leaking or lior. Patient scheduled once weekly. IMPRESSION ----- Viable montero gestation at 37w 1d, based on reported clinical dates. Nonstress test is reactive and reassuring for gestational age. Recommendations: - Continue current surveillance plan. Thank you for allowing us to participate in the care of this patient. Procedure Note Gardenia Mabry MD - 02/12/2025 [facility] NST ----- Genny. Name:Phil MCMAHAN Date:02/12/2025 8:51am Pat. 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 Para 0 MATERNAL ASSESSMENT ----- Physical Exam Weight 91 kg. BMI 31.32 kg/m . Blood /89 mmHg. Heart rate 97 bpm METHOD ----- EFM ----- Montero . Number of fetuses: 1 DATING ----- Cycle:regular cycle GA by prior [id number] w + 1 d RICK by prior assessment:03/04/2025 Method of dating:Restore dating from previous exam Assigned:based on stated RICK, selected on 10/23/2024 Assigned GA37 w + 1 d Assigned RICK:03/04/2025 NON STRESS TEST ----- NST interpretation: reactive. Test duration 40 min. Baseline FHR 135 bpm.Baseline variability: moderate. Accelerations: Present. Decelerations: Not present. Uterine activity: absent COMMENT ----- Nursing notes: Patient reports positive movement with no bleeding,leaking or lior. Patient scheduled once weekly. IMPRESSION ----- Viable montero gestation at 37w 1d, based on reported clinical dates. Nonstress test is reactive and reassuring for gestational age. Recommendations: - Continue current surveillance plan. Thank you for allowing us to participate in the care of this patient. us Shayne Jiménez MD US ORDERABLES Final Re sult from Last 3 Months Insurance [facility]
--- NOTE | 2025-02-25 15:43 | PM.IMHP ---
H&P: HPI History of Present Illness Date/Time: 02/25/25 15:43 Chief Complaint: Gestational hypertension Narrative: patient is a 29-year-old G 1 at 39 weeks admit to Labor and delivery for surveillance testing due to 2 vessel cord and the tracing was non reactive initially patient also had several elevated blood pressures Which persisted while she was being monitored. Blood pressures were 120s to 140s over 80s-90s. She denied headache scotomata or right upper quadrant pain. PH labs were done which were normal. She did mention that she has noticed some decreased movement. she was offered induction of labor which she agreed. She was informed of risks benefits of induction of labor and induction of labor methods. Review of Systems Review of Systems: All systems reviewed & are unremarkable except as noted in HPI and below Constitutional: Constitutional: Reports no additional constitutional complaints and Denies headache(s) Eyes: Eyes: Denies spots in vision ENT: Reports system reviewed and no additional complaints, except as documented and Denies headache(s) Cardiovascular: Cardiovascular: Denies chest pain and Denies dyspnea Respiratory: Respiratory: Denies dyspnea Gastrointestinal: Gastrointestinal: Reports no additional gastrointestinal complaints Genitourinary: Genitourinary: Reports amenorrhea Musculoskeletal: Musculoskeletal: Reports no additional musculoskeletal complaints Integumentary/Breasts: Skin/Breast: Denies breast mass and Denies rash Neurologic: Denies headache(s) Psychiatric: Psychiatric: Reports no additional psychiatric complaints PMFSH Past Medical History Medical History History of frequent headaches Family History Family History Father Diabetes mellitus Testicular cancer Hypertension Colon cancer Mother Hypertension Social History Social History Smoking status: Never smoker Alcohol intake: never Substance use: never Occupation/Education: occupation Spiritual care concerns: No Meds Home Medications and Allergies Home Medications ?Medication ?Instructions ?Recorded ?Confirmed ?Type docosahexaenoic acid 200 mg 200 mg PO DAILY 07/28/24 02/12/25 History capsule ( DHA) magnesium 250 mg tablet 250 mg PO DAILY 07/28/24 02/12/25 History calcium carb, citrate, malate mg PO 12/11/24 02/12/25 History terconazole 0.8 % vaginal cream 1 appful vaginal QHS 3 days #20 02/24/25 Rx grams Allergies Allergy/AdvReac Type Severity Reaction Status Date / Time No Known Allergies Allergy Verified 02/17/25 08:30 Vital Signs Vital Signs - 24 hr 02/25/25 14:38 Pulse Rate 107 H Blood Pressure 138/89 Exam Const: General: no acute distress Eyes: General: appearance normal, both eyes and all related structures Resp: Effort & Inspection: normal respiratory effort Cardio: Rate: regular rate GI: Other: Gravid no fundal tenderness no right upper quadrant pain : Other: cervix to 290/-3. Skin: General skin exam: no rashes or lesions noted Neuro: Cognition (Neuro): normal cognition Extrem: General: normal to inspection Psych: Mental Status: mental status grossly normal Assessment and Plan Assessment and plan (1) Encounter for induction of labor: Code(s): Z34.90 - Encounter for supervision of normal , unspecified, unspecified trimester Status: Acute Assessment and Plan: she has been informed of risks benefits. She has with induction of labor. Will start Pitocin induction. (2) Elevated blood pressure affecting in third trimester, antepartum: Code(s): O16.3 - Unspecified maternal hypertension, third trimester Status: Acute Assessment and Plan: Patient with several sustained elevated blood pressures no PH symptoms and normal pH labs. By strict criteria has not met the diagnosis of gestational hypertension since it has been less than 6 hours. She was given the option for induction since she has noticed decreased movement.
[2025-02-25 17:01] LABS: Syphilis IgG/IgM Antibody Negative (Negative)
[2025-02-25 17:13] LABS: HIV 1/2 Ab P24 Ag Result Negative (Negative)
--- NOTE | 2025-02-25 17:33 | LDADM ---
This patient, Cielo Mcmahan, was admitted to Labor/Delivery/Recovery 105 on 02/25/25 at 13:56. Plans for labor, pain management and were discussed with patient. Patient/family oriented to hospital policies and general routines including ID bracelet, bed and alarms, visiting hours, pain management, procedures, bathroom and other care routines, personal items, smoking policy, room service/diet and guest tray routines, infant security routines, and visiting hours. Patient/Family are encouraged to report perceived risks to care and to ask questions if they do not understand what they are told or what they should do. See OBIX for further documentation.
[2025-02-25] MEDS: LACTATED RINGERS 1,000 ML 125 ML IV CONT ×2 (17:59→23:41)
[2025-02-25] MEDS: OXYTOCIN 30 UNITS/NS 500 ML 30 UNITS/500 ML BAG IV CONT (18:02)
[2025-02-25] MEDS: fentaNYL CITRATE INJ (*CRX) 100 MCG/2 ML VIAL 50 MCG IV PUSH (21:23)
[2025-02-25] MEDS: fentaNYL CITRATE INJ (*CRX) 100 MCG/2 ML VIAL IV PUSH (23:30)
[2025-02-26] VITALS (96 sets, daily range): BP systolic 118–192; BP diastolic 69–171; PULSE 30–143; RESP 14–19; TEMP 36.3–37.3; O2SAT 73–100
--- NOTE | 2025-02-26 00:43 | P.PNAN_ITS ---
Anes - Initial Pre Proc Eval Procedure: labor epidural Date/Time: 02/26/25 00:43 Surgeon: Serge Lebron MD Pre Op Diagnosis: labor pain Pre Op Diagnosis: IOL Patient Data Age: 29 Gender: F Height: 1.71 m Weight: 96.5 kg Last Vital Signs Temp 36.8 C 02/25/25 22:00 Pulse 89 02/26/25 00:42 BP 134/77 02/26/25 00:42 Pulse Ox 100 02/26/25 00:40 O2 Del Method Room Air 02/25/25 17:31 Allergies Allergy/AdvReac Type Severity Reaction Status Date / Time No Known Allergies Allergy Verified 02/26/25 00:43 Home Medications ?Medication ?Instructions ?Recorded ?Confirmed ?Type docosahexaenoic acid 200 mg 200 mg PO DAILY 07/28/24 02/25/25 History capsule ( DHA) magnesium 250 mg tablet 250 mg PO DAILY 07/28/24 02/25/25 History calcium carb, citrate, malate mg PO 12/11/24 02/12/25 History terconazole 0.8 % vaginal cream 1 appful vaginal QHS 3 days #20 02/24/25 02/25/25 Rx grams Laboratory Tests 02/25/25 15:24 Syphilis IgG/IgM Ab Negative (Negative) HIV 1&2 Ab/P24 Ag 4thGn Negative (Negative) Blood Type O Negative Antibody Screen Positive Antibody Identification Inconclusive Antigen Identification TNP MADDIE, IgG Interpret Not Performed MADDIE, Poly Interpret Negative MADDIE, Complement Interp Not Performed Patient hx anesthesia problems: none Family hx anesthesia problems: none Results Review: All pre-operative results and documents have been reviewed as part of the pre- operative evaluation. [facility] Past Medical History Medical History History of frequent headaches Family History Family History Father Diabetes mellitus Testicular cancer Hypertension Colon cancer Mother Hypertension Social History Social History Smoking status: Never smoker Alcohol intake: never Substance use: never Do You Feel Safe in your Home?: Yes Lack of Transportation: No Lack of Food: Never True Current Housing: I Have Housing Concerned About Future Housing: No Difficulty Paying Gas/Electric Bills: No Difficulty Paying for Meds: No Currently Unemployed: No Education: Bachelor's Degree Difficulty w/ Childcare or Family Care: No Occupation/Education: occupation Spiritual care concerns: No Anes - Eval Final PreProcedure Day of Procedure 02/26/25 00:43 Heart: regular rate and rhythm Lungs: clear to auscultation and normal air movement Airway: Mallampati scale class II Neurological: alert and oriented Results Review: All pre-operative results and documents have been reviewed as part of the pre- operative evaluation. Informed Consent: The patient's anesthetic plan and its attendant risks and benefits were discussed with the patient/family/POA. Questions were solicited and answers provided to the satisfaction of the patient/family/POA.
[2025-02-26] MEDS: MAGNESIUM 13.5 MG TABLET (250 MG MAG GLUCONATE) PO (01:01)
[2025-02-26] MEDS: LACTATED RINGERS 1,000 ML 125 ML IV CONT (01:14)
--- NOTE | 2025-02-26 02:33 | PM.OBPRVD ---
OB - Vaginal Delivery Note Procedure Delivery date: 02/26/25 Events: Gestational Hypertension Induction method: Per Pitocin Protocol Delivery monitor: External FHT Route of delivery: Laceration Description: Perineal - 2nd Degree and Vaginal (sidewall) Delivery repair: vicryl (2.0 and 3.0 vicryl) Specimen: Yes Quantitative Blood Loss (ml): 350 Anesthesia type: Epidural Disposition: Floor Complications: No immediate complications Narrative: She Was admitted for medical induction of labor. Low-dose Pitocin was started. She dilated quickly to complete. At the time of delivery she had assisted rupture of membranes questionable very light meconium. She delivered a female infant. It was vigorously crying upon delivery and placed on maternal abdomen. Peds available. Cord was doubly clamped and cut after delayed cord clamping for 45 seconds. Until cord was a pulsatile. Patient was taken to warmer. Pitocin started. cord blood and cord gases obtained. Placenta delivered spontaneously and intact there were trailing membranes. the lower uterine segment was swept and no membranes present. She did sustain a vaginal laceration on the right and a small 1 on the left and a second-degree perineal laceration repaired with 3-0 and 2-0 Vicryl. She tolerated procedure well. EBL 350. [place] Baby Date of : 02/26/25 Time of : 02:00 Gestational Age by Date: 38 Infant gender: Female Weight (pounds): 8 Weight (ounces): 4 presentation: vertex position: Right Occiput Anterior Placenta delivery description: Spontaneous Cord Vessel Description: 2 Vessels, Clamped/Cut and Delayed Cord Clamping score one minute: 7 score five minutes: 9
[2025-02-26] MEDS: OXYTOCIN 30 UNITS/NS 500 ML 30 UNITS/500 ML BAG 125 UNITS IV CONT (02:37)
[2025-02-26] MEDS: miSOPROStol 200 MCG TABLET 1000 MCG RECTAL (03:55)
[2025-02-26] MEDS: BENZOCAINE 20% AER SPR (*SP) 56 GM CAN 1 SPRAY TOPICAL (05:00)
[2025-02-26] MEDS: WITCH HAZEL 40 PADS 1 PAD TOPICAL (05:00)
[2025-02-26] MEDS: IBUPROFEN 600 MG TABLET PO (09:27)
[2025-02-26] MEDS: DOCUSATE SODIUM 100 MG CAPSULE PO (09:27)
[2025-02-26] MEDS: MULTIVIT/MIN/PREN/FOL AC/IRON TABLET 1 TAB PO (09:27)
--- NOTE | 2025-02-26 09:40 | PC.NURSE ---
Introductions were made, then consulted with patient to assess needs related to . Mother explains that it has been difficult to wake for feeding. Demonstrated undressing , stimulating with massage touch, changing positions to wake infant for feedings. Infant remains sleepy when placed at the breast after all attempts made to wake infant. Discussed this with primary RN who agreed that a blood sugar should be completed r/t infants sleepful state and absence of feeding for >6 hours. Blood sugar was completed and resulted as 49. This is WNL for infant for hours of life. placed skin to skin with mother and discussed watching for early feeding cues. Education provided on feeding cues and what to look for. Parents state understanding. Additionally, a nipple shield was given overnight for feedings r/t patients nipples being flat and slightly inverted. Reviewed good handwashing, cleaning the nipple shield and the appropriate way to apply and use as a tool. Discussed with mom the nipple shield precautions, possible complications associated with the risks and benefits. Reviewed practicing with a nipple shield, then without and how to protect the milk supply and production.
[2025-02-26] MEDS: ACETAMINOPHEN 325 MG TABLET 650 MG PO (15:03)
--- NOTE | 2025-02-26 15:03 | PM.OBPNVD ---
OB - PN: Subj Subjective Date/time seen: 02/26/25 15:03 Interval history: She did complain of feeling like she has to have a bowel movement but can not. Has not had much flatus. Denies headache scotomata or right upper quadrant pain. Patient comments: pain well controlled, tolerating diet and other (Decreasing lochia.) [place] baby status: doing well and nursing well OB - PN: Obj Data Labs Labs: Laboratory Results - last 24 hr 02/25/25 15:24 Syphilis IgG/IgM Ab Negative HIV 1&2 Ab/P24 Ag 4thGn Negative Blood Type O Negative Antibody Screen Positive Antibody Identification Inconclusive Antigen Identification TNP MADDIE, IgG Interpret Not Performed MADDIE, Poly Interpret Negative MADDIE, Complement Interp Not Performed OB - PN A/P Plan day: 1 Plan: routine care Comments: Patient doing well. Labile blood pressures no severe range. Continue to monitor. No PIH symptoms. Time Spent With Patient Time: Total time spent is greater than 50% in coordination of care (as documented) at patient's floor/unit and/or counseling patient: Exam Psych: Affect: normal affect Other: Abd: fundus firm below umbilicus, nontender Perineum: healing Small hemorrhoid present. Rectal exam normal not full of stool. Vaginal digital exam performed no abnormalities palpated. Ext: nontender
--- NOTE | 2025-02-26 15:20 | P.DS_ITS ---
DS: Admitting Diagnosis Discharge Date 02/28/25 Admitting Diagnosis Induction of labor DS: Discharge Diagnosis Discharge Diagnosis (1) Vaginal delivery: Code(s): O80 - Encounter for full-term uncomplicated delivery Status: Acute OB - DS: Summary Hospital Course Hospital Course: She was admitted for medical induction of labor after having elevated blood pressures at 39 weeks. Also tracing initially nonreactive which was a change from prior testing. Cervix was favorable. She agreed with induction. Pitocin induction was initiated. She had a vaginal delivery. She did have some bleeding which did respond to Cytotec. she did well. OB Procedures : NST and Ultrasound OB Procedures Intrapartum: Spontaneous Vag Delivery OB Procedures: : None Peripartum Data Delivery Method: Natural Vaginal Laceration Description: Perineal - 2nd Degree and Vaginal (sidewall) complications: none Status at Discharge Functional status at discharge: independent ambulation Time Spent with Patient Time attestation: Total time spent providing and/or coordinating discharge services: Exam Const: General: cooperative Orientation/consciousness: oriented to person, oriented to place and oriented to time HENMT: Face/Nose/Sinus: Normal external nose present Eyes: General: appearance normal, both eyes and all related structures Resp: Effort & Inspection: normal respiratory effort GI: Inspection: normal to inspection Skin: General skin exam: normal color Neuro: General: oriented to person, oriented to place and oriented to time Extrem: General: normal to inspection and no calf tenderness Psych: Appearance: grossly normal Mental Status: mental status grossly normal DS: Data Data Completed and Pending Labs on day of discharge: Labs from last 24 hours 02/25/25 15:24 Syphilis IgG/IgM Ab Negative HIV 1&2 Ab/P24 Ag 4thGn Negative Blood Type O Negative Antibody Screen Positive Antibody Identification Inconclusive Antigen Identification TNP MADDIE, IgG Interpret Not Performed MADDIE, Poly Interpret Negative MADDIE, Complement Interp Not Performed Discharge Plan Discharge Attending physician on discharge: Serge Lebron Consulting providers: Vargas Angel Discharging Clinician: Serge Lebron Patient Disposition: Home Activity: may shower, no straining and pelvic rest Diet: regular Patient Instructions: Antibiotic Form Patient Language: Vietnamese Stand Alone Forms: General Discharge Information Follow-up/Referrals: Serge Lebron MD [Physician] - 2 Weeks (Call for appointment) Discharge Medications: No Action calcium carb, citrate, malate 250 mg calcium capsule PO DHA 200 mg capsule 200 mg PO DAILY magnesium 250 mg tablet 250 mg PO DAILY terconazole 0.8 % cream 1 appful vaginal QHS 3 Days Qty: 20 0RF Date of admission: 02/25/25 13:56 Primary Care Provider: Storm Titus Admitting Provider: Serge Lebron Attending physician on admission: Serge Lebron Condition: Stable
[2025-02-27 05:19] LABS: Hematocrit 35.2 % (37.0-47.0)
[2025-02-27 08:25] VITALS: BP 132/92; PULSE 84; RESP 16; TEMP 36.3; O2SAT 100
--- NOTE | 2025-02-27 08:42 | P.PNOB_ITS ---
OB - PN: Subj Subjective Date/time seen: 02/27/25 08:42 Interval history: She did complain of feeling like she has to have a bowel movement but can not. Has not had much flatus. Denies headache scotomata or right upper quadrant pain. Patient comments: pain well controlled, tolerating diet and other (Decreasing lochia.) [place] feeding status: exclusively breast feeding OB - PN: Obj Data Labs 02/27/25 04:55 Labs: Laboratory Results - last 24 hr 02/27/25 04:55 Hgb 11.0 L Hct 35.2 L OB - PN A/P Plan day: 1 Plan: routine care Comments: Patient doing well. Time Spent With Patient Time: Total time spent is greater than 50% in coordination of care (as documented) at patient's floor/unit and/or counseling patient: Exam 2 Psych: Affect: normal affect Other: Abd: fundus firm below umbilicus, nontender Perineum: healing Ext: nontender
[2025-02-27] MEDS: MULTIVIT/MIN/PREN/FOL AC/IRON TABLET 1 TAB PO (09:21)
[2025-02-27] MEDS: DOCUSATE SODIUM 100 MG CAPSULE PO (09:21)
[2025-02-27] MEDS: ACETAMINOPHEN 325 MG TABLET 650 MG PO ×2 (09:23→21:16)
--- NOTE | 2025-02-27 09:25 | WPDANLDPN2 ---
Anes-Prog Note L&D Date/Time: 02/27/25 09:25 Comfortable throughout: labor and delivery Neuraxial method: epidural Epidural/Spinal procedure site: clean & non-tender Neuro status: Neuro function grossly intact. Cardiovascular status: normal Respiratory status: normal Airway patency: baseline Mental status: baseline Post-Op hydration status: normal Vital Signs: Last Vital Signs Temp 36.6 C 02/26/25 23:30 Pulse 83 02/26/25 23:30 Resp 14 02/26/25 23:30 BP 125/81 02/26/25 23:30 Pulse Ox 100 02/26/25 23:30 O2 Del Method Room Air 02/26/25 19:25 Pain score (VAS): 0/10 I/O: Intake & Output 02/26/25 02/27/25 02/27/25 23:59 07:59 15:59 Intake Total 240 Balance 240 Post-procedural complaints: none Patient feedback: Patient satisfied with anesthetic care.
--- NOTE | 2025-02-27 10:00 | PC.NURSE ---
Patient called out for assistance. She states that baby is very sleepy and they haven't been able to feed for several hours. Mom is using the nipple shield. Baby tends to suck on her tongue or keep her tongue up when latching. Showed mom how to move baby to the bassinet to wake her and how to wait for a very wide mouth before bringing baby to the shield. We reviewed pumping if baby doesn't feed robustly and pumping a few times a day while using the shield. Mom worries that baby is too sleepy and we discussed normal behavior and what to expect over the next few days. Advised skin to skin if baby is crying or fussy at breast and how to observe for early feeding cues. Patient is encouraged to call out for additional assistance as needed today. RN updated.
[2025-02-27 12:51] VITALS: BP 105/67; PULSE 107; RESP 16; TEMP 37; O2SAT 100
[2025-02-27] MEDS: IBUPROFEN 600 MG TABLET PO (16:49)
[2025-02-27] MEDS: MAGNESIUM 13.5 MG TABLET (250 MG MAG GLUCONATE) PO (21:16)
[2025-02-27 21:22] VITALS: BP 126/86; PULSE 79; RESP 16; TEMP 36.7; O2SAT 100
[2025-02-28 08:05] VITALS: BP 135/100; PULSE 78; RESP 16; TEMP 36.2; O2SAT 100
[2025-02-28] MEDS: MULTIVIT/MIN/PREN/FOL AC/IRON TABLET 1 TAB PO (08:07)
--- NOTE | 2025-02-28 11:50 | PC.NURSE ---
Consulted with mother concerning needs and she shared her ability to independently latch infant optimally using the nipple shield without pain. Mother is feeding appropriately for growth of and understands stimulating to eat if needed. Infant has had appropriate feedings in the last 24 hours meets the outcomes for weight, output, blood sugar and jaundice at this time. Reinforced understanding of milk production, transition of milk, signs of adequate intake, transition of stool, prevention/relief of engorgement, plugged ducts, mastitis, responsive watching for feeding cues, the different methods of stimulating infant to breastfeed 1-3 hours after the start of the last feeding, community resources, and when to call a provider using the resource of the feeding sheet along with the mom and baby guide. She doesn't need a [facility] referral and she has a Mom Cozy breast pump and is aware that she may need a double electric pump if the Mom Cozy doesn't provide the results she desires. Mom and dad feel that by staying another night in the hospital they were able to become more comfortable with and had many of their questions answered. They are aware the team is available to them throughout their journey. Mother voiced understanding of the information shared, is confident to continue effectively her at home, when to call for assistance, denies any additional assistance or education at this time. Reported to the Primary RN.
--- NOTE | 2025-02-28 12:13 | PM.OBDSVD ---
DS: Admitting Diagnosis Discharge Date 02/28/2025 Admitting Diagnosis DS: Discharge Diagnosis Discharge Diagnosis (1) , delivered: Code(s): O80 - Encounter for full-term uncomplicated delivery Status: Acute OB - DS: Summary Hospital Course Hospital Course: She was admitted for medical induction of labor after having elevated blood pressures at 39 weeks. Also tracing initially nonreactive which was a change from prior testing. Cervix was favorable. She agreed with induction. Pitocin induction was initiated. She had a vaginal delivery. She did have some bleeding which did respond to Cytotec. she did well. OB Procedures : None OB Procedures Intrapartum: Spontaneous Vag Delivery OB Procedures: : None Peripartum Data Laceration Description: Perineal - 2nd Degree and Vaginal (sidewall) Time Spent with Patient Time attestation: Total time spent providing and/or coordinating discharge services: DS: Data Data Completed and Pending Pending studies at discharge: Pending at discharge 02/27/25 11:02 Surgical [PTH] Routine Discharge Plan Discharge Attending physician on discharge: Serge eLbron Consulting providers: Vargas Angel Discharging Clinician: Serge Lebron Patient Disposition: Home Activity: may shower, no straining and pelvic rest Diet: regular Patient Instructions: Antibiotic Form Patient Language: Vietnamese Stand Alone Forms: General Discharge Information Follow-up/Referrals: Serge Lebron MD [Physician] - 2 Weeks (Call for appointment) Discharge Medications: New ibuprofen 600 mg Tablet 600 mg PO Q6H PRN (Reason: Cramping) Qty: 20 0RF Continued calcium carb, citrate, malate 250 mg calcium capsule PO DHA 200 mg capsule 200 mg PO DAILY magnesium 250 mg tablet 250 mg PO DAILY terconazole 0.8 % cream 1 appful vaginal QHS 3 Days Qty: 20 0RF Date of admission: 02/25/25 13:56 Primary Care Provider: Storm Titus Admitting Provider: Serge Lebron Attending physician on admission: Serge Lebron Condition: Stable
[2025-03-02 08:29] VITALS: BP 127/93; PULSE 86; RESP 18; TEMP 36.9; O2SAT 100
== END 2025-02-28 14:30 | disposition home or self-care (01) | DRG 807 ==
LOC: ANHLDR 13:58 → ANHOB2 02-26 05:06
PROVIDERS: Admitting Provider Obstetrics & Gynecology; PCP Family Medicine Adolescent Medicine; Visit Provider Obstetrics & Gynecology
DX: O13.4 Gestational [pregnancy-induced] hypertension without significant proteinuria, complicating childbirth (principal); Z37.0 Single live birth; Z3A.39 39 weeks gestation of pregnancy; O77.0 Labor and delivery complicated by meconium in amniotic fluid; O70.1 Second degree perineal laceration during delivery
CPT/HCPCS: 36415; 85014; 85018; 86593; 86703; 86850; 86880; 86900; 86901; 86902; 88307; A9270; G0432; J2590; J2795; J3010; J7120

== ENCOUNTER 2025-03-02 08:39 | Outpatient (CLI) | payer BC, SELFPAY ==
[2025-03-02 09:01] VITALS: BP 143/92; PULSE 85
--- OUTSIDE RECORDS SUMMARY | 2025-03-02 09:02 | XMS_ITS | Clinical Summary ---
Author Organization [facility] Address [address] [place] [address] Phone Care Team Providers Care Online Advertising Director Name Role Phone Unavailable Primary Care Provider Unavailabl e Encounters Date Type Department Care Team Description 02/19/2025 7:30 AM CDT - 02/19/2025 11:59 PM CDT Hospital Encounter [facility] Enoch Abrams [address] [place] [phone] Shayne Jiménez MD Discharge Disposition: Home or Self Care 02/12/2025 9:20 AM CDT - 02/12/2025 11:59 PM CDT Hospital Encounter [facility] Enoch Abrams [address] [place] [phone] Shayne Jiménez MD Discharge Disposition: Home or Self Care 02/12/2025 8:26 AM CDT - 02/12/2025 11:59 PM CDT Hospital Encounter [facility] Enoch Abrams [address] [place] [phone] Shayne Jiménez MD Discharge Disposition: Home or Self Care 02/05/2025 9:30 AM CDT - 02/05/2025 11:59 PM CDT Hospital Encounter [facility] Enoch Abrams [address] [place] [phone] Shayne Jiménez MD Discharge Disposition: Home or Self Care 01/29/2025 8:59 AM CDT - 01/29/2025 11:59 PM CDT Hospital Encounter [facility] Enoch Abrams [address] [place] [phone] Shayne Jiménez MD Discharge Disposition: Home or Self Care 01/27/2025 External Device Data [facility] ABSTRACTION Provider, Abstract 01/15/2025 9:18 AM CDT - 01/15/2025 11:59 PM CDT Hospital Encounter [facility] Enoch Abrams [address] [place] [phone] Melanie Sykes MD Discharge Disposition: Home or Self Care 01/03/2025 External Device Data [facility] ABSTRACTION Provider, Abstract 01/02/2025 External Device Data [facility] ABSTRACTION Provider, Abstract 12/31/2024 External Device Data [facility] ABSTRACTION Provider, Abstract 12/25/2024 7:07 AM ST[facility] - 12/25/2024 11:59 PM [facility]OCK [facility] Hospital Encounter [facility] Enoch Abrams [address] [place] [phone] Fiona Martinez MD Discharge Disposition: Home or Self Care 12/16/2024 7:15 AM [facility] - 12/16/2024 11:59 PM STOCK CLERK [facility] Hospital Encounter [facility] Enoch Abrams [address] [place] [phone] Melanie Sykes MD Discharge Disposition: Home or Self Care 12/16/2024 External Device Data [facility] ABSTRACTION Provider, Abstract from Last 3 Months Social History Tobacco Use Types Packs/Day Years Used Date Smoking Tobacco: Never Assessed Comments Unknown Sex and Gender Information Value Date Recorded Sex Assigned at Female 10/28/2024 8:55 PM [facility] Legal Sex Female 12:21 PM [facility] Gender Identity Female 10/28/2024 8:55 PM [facility] Sexual Orientation Not on file Plan of [...] UP PER FETUS Routine 12/25/2024 7:44 AM [facility] arrhythmia affecting , antepartum US OB FOLLOW UP PER FETUS Routine 12/16/2024 7:43 AM STOCK [facility] Single umbilical artery from Last 3 Months Results * US OB LIMITED + NST (02/19/2025 9:01 AM CDT) Only the most recent of3 resultswithin the time period is included. Anatomical Region Laterality Modality Pelvis Ultrasound 02/19/2025 12:2 9 PM CDT Narrative 02/19/2025 8:29 AM CDT [facility] STUDY ----- Pat. Name: ОЛЕГ MCMAHAN Study Date: 02/19/2025 12:29pm Pat. 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 Name:Phil MCMAHAN Date:02/19/2025 12:29pm Pat. 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 Para 0 MATERNAL ASSESSMENT ----- Physical Exam Weight 91 kg. BMI 31.32 kg/m . Blood ljnalrcg374/81 mmHg. Heart rate 112 bpm METHOD ----- EFM, Transabdominal ultrasound examination. View: Good view ----- Montero . Number of fetuses: 1 DATING ----- Cycle:regular cycle GA by prior [id number] w + 1 d RICK by prior [...] MCMAHAN Study Date: 02/12/2025 9:36am Pat. 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 Name:KRISTIE MCMAHANtudy Date:02/12/2025 9:36am Pat. 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 Para 0 MATERNAL ASSESSMENT ----- Physical Exam Weight 91 kg. BMI 31.32 kg/m METHOD ----- Transabdominal ultrasound examination ----- Montero . Number of fetuses: 1 DATING ----- Cycle:regular cycle GA by prior [id number] w + 1 d RICK by prior [...] 7 lb 2 oz EFW by [place] (FAC-SB-CP-FL) Extremities / Bony Struc Biometry: FL / [...] and date of were verified by the gage designer prior tothe exam IMPRESSION ----- Viable at [...] MCMAHAN Study Date: 02/12/2025 8:51am Pat. 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 [...] Genny. Name:Phil MCMAHAN Date:02/12/2025 8:51am Pat. 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 Para 0 MATERNAL ASSESSMENT ----- Physical Exam Weight 91 kg. BMI 31.32 kg/m . Blood /89 mmHg. Heart rate 97 bpm METHOD ----- EFM ----- Mon[place]o . Number of fetuses: 1 DATING ----- Cycle:regular cycle GA by prior [id number] w + 1 d RICK by prior [...] Re sult from Last 3 Months Insurance [facility]
[2025-03-02 09:04] LABS: Basophils Percent Auto 0.3 % (0.2-1.2); Eosinophils Absolute Auto 0.3 K/mm3 (0-0.3); Eosinophils Percent Auto 3.1 % (0-4.4); Hemoglobin 10.7 g/dL (12.0-15.0); Immature Granulocyte Absolute 0.08 K/mm3 (0.00-0.031); Immature Granulocyte Percent A 0.9 % (0-0.5); Lymphocytes Absolute Auto 1.47 K/mm3 (0.9-3.2); Lymphocytes Percent Auto 15.9 % (18.3-44.2); Mean Corpuscular HGB Conc 31.5 g/dl (32-36); Mean Corpuscular Volume 92.1 fl (80-100); Mean Platelet Volume 10.1 fl (7.4-10.4); Monocytes Absolute Auto 0.5 K/mm3 (0.1-0.6); Monocytes Percent Auto 5.4 % (2.6-8.5); Neutrophils Absolute Auto 6.9 K/mm3 (1.3-6.7); Neutrophils Percent Auto 74.4 % (45.5-73.1); Platelet Count Result 209 k/mm3 (150-375); Red Blood Count 3.69 M/mm3 (4.2-5.4); Red Cell Distribution Width 14.6 % (11.5-14.5); White Blood Count 9.2 K/mm3 (4.5-10.0)
[2025-03-02 09:15] LABS: Alanine Aminotransferase 22 U/L (6-35); Albumin Level 3.5 g/dL (3.5-5.1); Alkaline Phosphatase 95 U/L (38-126); Anion Gap 6 mmol/L (4-12); Aspartate Amino Transferase 17 U/L (14-36); Bilirubin,Total 0.3 mg/dL (0.2-1.3); Blood Urea Nitrogen 14 mg/dL (7-17); Calcium 9.3 mg/dL (8.4-10.2); Carbon Dioxide 28 mmol/L (22-30); Chloride 104 mmol/L (98-107); Estimated Glomerular Filt Rate > 60; Glucose 102 mg/dL (65-110); Potassium 3.7 mmol/L (3.4-5.0); Sodium 138 mmol/L (137-145); Uric Acid 5.5 mg/dL (2.5-7.5)
[2025-03-02 09:16] VITALS: BP 131/81; PULSE 78
[2025-03-02 09:31] VITALS: BP 124/79; PULSE 80
== END 2025-03-02 09:45 | disposition home or self-care (01) ==
LOC: ANHOBOP 08:42 → ANHOBPP 08:43
PROVIDERS: PCP Family Medicine Adolescent Medicine; Visit Provider Obstetrics & Gynecology
DX: O13.9 Gestational [pregnancy-induced] hypertension without significant proteinuria, unspecified trimester (principal); Z3A.00 Weeks of gestation of pregnancy not specified
CPT/HCPCS: 36415; 80053; 84550; 85025; 99199